=== PATIENT | male | born 1970 | race Caucasian/White ===

== ENCOUNTER 2016-05-22 01:44 | Emergency (ER) | payer OTHER, BC ==
[2016-05-22 01:58] LABS: EOSINOPHIL (%) 1.7 % (0-5); EOSINOPHIL COUNT 0.1 K/uL (0-0.3); HEMATOCRIT 44.3 % (38.0-50.0); IMMATURE GRANULOCYTE (%) 0.4 % (0.0-0.7); INSTRUMENT ABS NEUTROPHIL CT 4.4 K/uL; LYMPHOCYTE COUNT 1.9 K/uL (1.0-2.8); MCH 30.2 PG (29.0-34.0); MCHC 33.4 G/DL (30.0-36.0); MCV 90.4 FL (86-99); MEAN PLAT.VOLUME 10.4 uM^3 (9.0-12.4); MONOCYTE (%) 9.5 % (3-12); MONOCYTE COUNT 0.7 K/uL (0-0.8); NEUTROPHIL (%) 61.6 % (45-76); NEUTROPHIL COUNT 4.4 K/uL (1.8-6.4); PLATELET COUNT 243 K/uL (156-360); RBC DIS.WIDTH-CV 12.6 % (11.8-14.6); RBC DIS.WIDTH-SD 42.1 % (39-53); WHITE BLOOD COUNT 7.1 K/uL (4.1-10.2)
[2016-05-22 02:15] LABS: AMYLASE 74 IU/L (1-118); CHLORIDE 106 mEq/L (99-109); POTASSIUM 3.9 mEq/L (3.7-5.4); SODIUM 139 mEq/L (136-147)
[2016-05-22 02:16] LABS: GLUCOSE 107 mg/dL (70-99)
[2016-05-22 02:18] LABS: ANION GAP 10 MEQ/L (2-14)
[2016-05-22 02:19] LABS: SERUM ETHYL ALCOHOL < 10 mg/dL
[2016-05-22 02:20] LABS: GFR ESTIMATE (CALCULATED) > 59 mL/min/
[2016-05-22 02:21] LABS: UREA NITROGEN (BUN) 15 mg/dL (9-23)
[2016-05-22 02:23] LABS: LIPASE 49 U/L (1.0-51.0)
== END 2016-05-22 03:53 | disposition home or self-care (01) ==
LOC: TRA 01:44
PROVIDERS: Emergency Medicine
DX: S06.0X0A Concussion without loss of consciousness, initial encounter (principal); S60.511A Abrasion of right hand, initial encounter; V47.5XXA Car driver injured in collision with fixed or stationary object in traffic accident, initial encounter
CPT/HCPCS: 70450; 71010; 72125; 73130; 80048; 81003; 82150; 83690; 85025; 86850; 86900; 86901; 99281; 99285; G0480; J2270; J2405